=== PATIENT | male | born 1995 | race Caucasian/White ===

== ENCOUNTER 2019-05-10 11:22 | Emergency (ER) | payer MEDICAID, OTHER ==
[2019-05-10] MEDS: ACETAMINOPHEN 500 MG TAB PO (12:44)
== END 2019-05-10 14:20 | disposition home or self-care (01) ==
LOC: FTE 11:22
DX: G43.909 Migraine, unspecified, not intractable, without status migrainosus (principal); G44.009 Cluster headache syndrome, unspecified, not intractable; J45.909 Unspecified asthma, uncomplicated
CPT/HCPCS: 99283; Z7502